=== PATIENT | male | born 1965 | race Caucasian/White ===

== ENCOUNTER 2018-11-14 07:03 | Emergency (ER) | payer OTHER ==
[2018-11-14 07:12] VITALS: BP 166/105
--- NOTE | 2018-11-14 07:18 | ED Physician Documentation ---
PD HPI UPPER EXT INJURY - Stated complaint Stated Complaint: LT MIDDLE FINGER PX - Chief complaint Chief Complaint: Ext Problem - History obtained from History obtained from: Patient - History of Present Illness Location: Left, Hand, Finger (middle finger and knuckle) Type of injury: Blunt / blow (hit a ladder when he was coming down and missed a step) Where injury occurred: Work Timing - onset: How many weeks ago (1) Timing - duration: Days (7) Timing - details: Abrupt onset, Still present Pain level max: 4 Pain level now: 4 Improved by: Meds (ibuprofen) Worsened by: Moving, Palpating Associated symptoms: Swelling. No: Weakness, Numbness, Tingling, Discolored Contributing factors: No: Anticoagulated, Prior ortho surgery Similar symptoms before: Has not had sx before Recently seen: Not recently seen Review of Systems Ten Systems: 10 systems reviewed and negative Constitutional: reports: Reviewed and negative. denies: Fever Skin: reports: Reviewed and negative. denies: Rash, Lesions, Abrasion (s), Laceration (s) Musculoskeletal: reports: Extremity pain, Joint pain Neurologic: denies: Focal weakness, Numbness PD PAST MEDICAL HISTORY - Past Medical History Past Medical History: No GI: GERD - Past Surgical History Past Surgical History: Yes HEENT: Tonsil/Adenoidectomy - Allergies Allergies/Adverse Reactions: Allergies Allergy/AdvReac Type Severity Reaction Status Date / Time terbinafine Allergy Hallucinati Verified 11/14/18 07:09 ons - Social History Does the pt smoke?: No Smoking Status: Former smoker Does the pt drink ETOH?: Yes ETOH Use: Beer Does the pt have substance abuse?: No - Immunizations Immunizations are current?: Yes PD ED PE NORMAL - Vitals Vital signs reviewed: Yes - General General: Alert and oriented X 3 - HEENT HEENT: Atraumatic - Neck Neck: Supple, no meningeal sign - Cardiac Cardiac: RRR - Respiratory Respiratory: No respiratory distress - Abdomen Abdomen: Non distended - Male Male : Deferred - Rectal Rectal: Deferred - Derm Derm: Normal color, Warm and dry, No rash - Extremities Extremities: Other (left third knuckle mild tenderness to palpation, mild swelling, mild reduced ROM of third finger with extension. no numbness or weakness. ) - Neuro Neuro: Alert and oriented X 3 Eye Opening: Spontaneous Motor: Obeys Commands Verbal: Oriented GCS Score: 15 - Psych Psych: Normal mood, Normal affect Results - Vitals Vitals: Vital Signs - 24 hr 11/14/18 07:06 Temperature 36.2 C L Heart Rate 62 Respiratory 15 Rate Blood Pressure 166/105 H O2 Saturation 98 Oxygen O2 Source Room air - Rads (name of study) hand Radiology: Final report received (possible fracture of distal third phalanx at base.) Procedures - Splint (location) Upper extremity left Splint applied by: Tech Type of splint: Other (short finger splint to L third distal phalanx) Other: Patient tolerated well PD MEDICAL DECISION MAKING - ED course Complexity details: considered differential ED course: 53 y/o M with L third finger/knuckle pain for 1 week since hitting it on a ladder. Reduced ROM with extension of third digit. No weakness, numbness. DDx includes extensor tendon injury, fracture, sprain, mallet finger Xray pending Xray shows possible distal L finger fracture and pt has mallet finger. Placed in distal finger splint in extension.Discussed with Dr Cortez who will see pt in clinic. Departure - Departure Disposition: 01 Home, Self Care Clinical Impression: Mallet deformity of left middle finger, Fracture of distal phalanx of finger of left hand Condition: Stable Instructions: ED Fx Finger Closed Follow-Up: Sara Cortez MD [Provider Admit Priv/Credential] - Within 1 week Comments: Take ibuprofen or tylenol for pain. Limit use of Left hand for 1 week until follow up with orthopedics. Maintain distal Left finger in extension splint
[2018-11-14] MEDS ORDERED: IBUPROFEN 600 MG TABLET PO STA (07:24)
--- NOTE | 2018-11-14 07:51 | XRAY Report ---
Reason: decreased ROM, hand trauma to 3rd finger/knuckle Procedure Date: 11/14/2018 Accession Number: [id number] / [id number] Procedure: XR - Hand 3 View LT CPT Code: FULL RESULT: EXAM: LEFT HAND RADIOGRAPHY EXAM DATE: 11/14/2018 07:37 AM. CLINICAL HISTORY: Decreased ROM, hand trauma to 3rd finger/knuckle. COMPARISON: None. TECHNIQUE: 3 views. FINDINGS: Bones: Possible fracture base of third digit distal phalanx palmar surface. There are severe degenerative changes at this location with osteophyte, joint space narrowing, subchondral sclerosis,. Degenerative changes at other DIP joints with osteophyte, joint space narrowing, erosions. Soft Tissues: Soft tissue swelling. IMPRESSION: 1. Possible fracture palmar surface of the third digit distal phalanx base 2. Erosive osteoarthritis RADIA
== END 2018-11-14 09:09 | disposition home or self-care (01) ==
LOC: ED 07:03
DX: S62.633A Displaced fracture of distal phalanx of left middle finger, initial encounter for closed fracture (principal); M20.012 Mallet finger of left finger(s); W22.8XXA Striking against or struck by other objects, initial encounter; Y93.89 Activity, other specified; Y99.0 Civilian activity done for income or pay; M19.042 Primary osteoarthritis, left hand; Z87.891 Personal history of nicotine dependence
CPT/HCPCS: 29130; 73130; 99283; A9270

== ENCOUNTER 2018-12-29 16:34 | Outpatient (CLI) | payer OTHER ==
--- NOTE | 2018-12-30 13:03 | Ultrasound Report ---
Reason: PAINFUL LUMP RIGHT GREAT TOE,MTP PROBABLE LIPOMA Procedure Date: 12/29/2018 Accession Number: [id number] / [id number] Procedure: US - Ext Limited Non Vascular CPT Code: FULL RESULT: EXAM: RIGHT FIRST UPPER EXTREMITY ULTRASOUND - LIMITED EXAM DATE: 12/29/2018 05:52 PM. CLINICAL HISTORY: Painful lump right great toe, MTP. Probable lipoma. COMPARISON: EXT LIMITED NON VASCULAR 12/29/2018 5:19 PM. TECHNIQUE: Real-time scanning was performed with static images obtained. FINDINGS: Dorsal to the right great toe is a heterogeneous fluid collection with echogenic solid material, overall dimension 1.9 x 0.8 x 0.7 cm. The finding is immediately dorsal to the articular space which contains hyperechoic synovial tissue. The definite relationship to the joint space itself is not established. IMPRESSION: The finding does not represent a lipoma. Given clinical description and location, recommend radiography of the foot to evaluate for osseous destruction and soft tissue calcifications; the differential diagnosis on ultrasound is wide and includes inflammatory entities such as gout as well as infectious processes. Malignancy would be difficult to exclude by ultrasound but is far down the differential diagnosis. RADIA
== END 2018-12-29 16:35 | disposition home or self-care (01) ==
LOC: DI 16:34
PROVIDERS: ATTEND Nurse Practitioner Family
DX: M79.674 Pain in right toe(s) (principal); R22.41 Localized swelling, mass and lump, right lower limb; R93.6 Abnormal findings on diagnostic imaging of limbs
CPT/HCPCS: 76882

== ENCOUNTER 2019-01-02 15:02 | Outpatient (CLI) | payer OTHER ==
[2019-01-02] MEDS ORDERED: GADOBUTROL 10 MMOL/10 ML VIAL ONE (15:22)
[2019-01-02] MEDS ORDERED: GADOBUTROL 10 MMOL/10 ML VIAL IVP ONE (16:21)
--- NOTE | 2019-01-04 | CT Report ---
Reason: CERVICAL PAIN IMPACTING ROM, METAL IN EYES? Procedure Date: 01/02/2019 Accession Number: [id number] / [id number] Procedure: CT - ORBITS WO CPT Code: FULL RESULT: EXAM: CT ORBITS WITHOUT CONTRAST EXAM DATE: 01/02/2019 03:17 PM. CLINICAL HISTORY: Metal in eyes? COMPARISONS: None. TECHNIQUE: Thin-section axial images were acquired of the orbits without contrast. Post-processing: Coronal and sagittal reformats. Other: None. In accordance with CT protocol optimization, one or more of the following dose reduction techniques were utilized for this exam: automated exposure control, adjustment of mA and/or KV based on patient size, or use of iterative reconstructive technique. FINDINGS: Orbits: The globes are symmetric in size. There is no evidence of lens dislocation, intraocular hemorrhage, or an intraocular mass lesion. The bilateral external ocular muscles, optic nerves, and superior ophthalmic veins are symmetric and normal in appearance. No radiopaque foreign body is seen in either orbit. Soft Tissue: The infratemporal fossa and parapharyngeal spaces are unremarkable. Bones: No fracture or bone lesion. Temporomandibular Joints: The temporomandibular joints are symmetric and normally located. Sinuses: A small mucocele is noted in the left ethmoid sinus. The partially visualized mastoid sinuses are not opacified. Other: No acute abnormality is seen in the partially visualized brain parenchyma. IMPRESSION: 1. Normal and symmetric bilateral orbits without radiopaque foreign body. 2. Small mucocele in the left ethmoid sinus. RADIA
--- NOTE | 2019-01-04 00:01 | MRI Report ---
Reason: CERVICAL PAIN IMPACTING ROM Procedure Date: 01/02/2019 Accession Number: [id number] / [id number] Procedure: MRI - Cervical Spine W/WO CPT Code: FULL RESULT: EXAM: MRI CERVICAL SPINE WITHOUT AND WITH CONTRAST EXAM DATE: 01/02/2019 04:53 PM. CLINICAL HISTORY: Cervical pain impacting range of motion. COMPARISON: None. TECHNIQUE: Multiplanar, multisequence T1-weighted and fluid-sensitive sequences of the cervical spine before and after administration of intravenous contrast. Other: None. IV contrast: 10 mL of Gadavist. FINDINGS: Neurologic Structures: The visualized posterior fossa structures are unremarkable. No signal abnormality in the visualized spinal cord. Alignment: Retrolisthesis at C4-C5 measures 1 mm. Bone Marrow: Mild type I Modic endplate changes are present at C4-C5, C5-C6, and C6-C7. Superimposed small chronic Schmorl's nodes are noted at these levels. Interspace Levels/Facets: C1-C2: There is no craniocervical stenosis. C2-C3: Mild right foraminal narrowing is present due to uncovertebral hypertrophy and facet arthropathy. The spinal canal and left foramen are patent. C3-C4: A posterior disk osteophyte complex results in mild spinal canal stenosis without mass-effect on the spinal cord. There is severe bilateral foraminal narrowing due to uncovertebral hypertrophy and facet arthropathy. C4-C5: A posterior disk osteophyte complex results in mild spinal canal stenosis without mass-effect on the spinal cord. Moderate left foraminal narrowing is present due to uncovertebral hypertrophy and facet arthropathy. The right foramen is patent. C5-C6: A posterior disk osteophyte complex results in mild spinal canal stenosis. There is moderate right and mild left foraminal narrowing due to bilateral uncovertebral hypertrophy and right-sided facet arthropathy. C6-C7: A posterior disk osteophyte complex results in mild spinal canal stenosis without mass-effect on the spinal cord. There is moderate bilateral foraminal narrowing due to uncovertebral hypertrophy. C7-T1: Unremarkable. Spinal Canal: No enhancing lesions within the spinal canal. No epidural abscess. Musculature: Normal. No edema, enhancement, or fatty atrophy. Other: The paravertebral and prevertebral soft tissues are normal. IMPRESSION: 1. Normal conus medullaris and cauda equina. 2. No abnormal enhancement to suggest cervical spinal infection or tumor. 3. Mild multilevel degenerative changes are present without high-grade spinal canal stenosis or spinal cord impingement. 4. Varying degrees of bilateral foraminal narrowing are present, most severe bilaterally at C3-C4. RADIA
== END 2019-01-02 15:03 | disposition home or self-care (01) ==
LOC: DI 15:02
PROVIDERS: ATTEND Nurse Practitioner Family
DX: J34.1 Cyst and mucocele of nose and nasal sinus (principal); M47.812 Spondylosis without myelopathy or radiculopathy, cervical region; M48.02 Spinal stenosis, cervical region
CPT/HCPCS: 70480; 72156; A9585

== ENCOUNTER 2020-05-25 15:03 | Emergency (ER) | payer OTHER ==
[2020-05-25 15:37] LABS: BASOPHILS % (AUTO) 0.5 %; EOSINOPHILS # (AUTO) 0.1 10^3/uL (0.0-0.7); EOSINOPHILS % (AUTO) 1.6 %; HGB - HEMOGLOBIN 16.7 g/dL (14.0-18.0); LYMPHOCYTES # (AUTO) 1.8 10^3/uL (1.5-3.5); LYMPHOCYTES % (AUTO) 24.5 %; MEAN CORPUSCULAR HEMOGLOBIN 33.4 pg (27.0-31.0); MEAN CORPUSCULAR HGB CONC 35.5 g/dL (32.0-36.0); MEAN PLATELET VOLUME 8.7 fL (7.4-11.4); MONOCYTES # (AUTO) 0.6 10^3/uL (0.0-1.0); MONOCYTES % (AUTO) 7.8 %; NEUTROPHILS # (AUTO) 4.8 10^3/uL (1.5-6.6); NEUTROPHILS % (AUTO) 65.2 %; PLT - PLATELET COUNT 214 10^3/uL (130-450); RED CELL DISTRIBUTION WIDTH 11.8 % (12.0-15.0); WHITE BLOOD COUNT 7.4 x10^3/uL (4.8-10.8)
--- NOTE | 2020-05-25 15:45 | ED Physician Documentation ---
History of Present Illness - Stated complaint Stated Complaint: BLACK STOOL - Chief complaint Chief Complaint: Abd Pain - Additonal information Additional information: 54-year-old male presents emergency department for evaluation of melena for approximately the last 7 to 10 days. He reports frankly black and tarry stools. He also endorses some left-sided abdominal pain as well as epigastric pain no fevers, vomiting. No dysuria urgency or frequency. He does report a history of colonoscopy about 6 months ago in which they found polyps. He was encouraged to have a repeat colonoscopy within the year. He does have a history of GERD for which he takes omeprazole. He is not on blood thinners, rarely uses naproxen for joint pain. He denies feeling lightheaded, short of breath or having any chest pain. Review of Systems Constitutional: denies: Fever, Chills Eyes: reports: Reviewed and negative Ears: reports: Reviewed and negative Nose: reports: Reviewed and negative Throat: reports: Reviewed and negative Cardiac: reports: Reviewed and negative Respiratory: reports: Reviewed and negative GI: reports: Bloody / black stool. denies: Abdominal Pain, Abdominal Swelling, Nausea, Vomiting : denies: Dysuria, Frequency, Hesitancy Skin: denies: Rash Musculoskeletal: reports: Reviewed and negative Neurologic: reports: Reviewed and negative PD PAST MEDICAL HISTORY - Past Medical History GI: GERD - Past Surgical History Past Surgical History: Yes HEENT: Tonsil/Adenoidectomy - Present Medications Home Medications: Ambulatory Orders Medication Instructions Recorded Confirmed Atorvastatin [Lipitor] 20 mg ORAL DAILY 05/25/20 05/25/20 Cristian/D3/Mag11/Zinc/Electrician Supervisor/Ray/Bor 1 tab ORAL DAILY 05/25/20 05/25/20 [Caltrate 600+D Plus Tablet] Cholecalciferol [Vitamin D3] 25 mcg PO DAILY 05/25/20 05/25/20 Naproxen [EC-Naprosyn] 500 mg PO BID PRN 05/25/20 05/25/20 Omeprazole Magnesium 20 mg PO DAILY 05/25/20 05/25/20 - Allergies Allergies/Adverse Reactions: Allergies Allergy/AdvReac Type Severity Reaction Status Date / Time terbinafine Allergy Hallucinati Verified 05/25/20 15:19 ons - Social History Does the pt smoke?: No Smoking Status: Former smoker Does the pt drink ETOH?: Yes Does the pt have substance abuse?: No - Immunizations Immunizations are current?: Yes PD ED PE EXPANDED - General General: Alert, No acute distress, Well developed/nourished - HEENT HEENT: Atraumatic, EOMI - Cardiac Cardiac: Regular Rate, Regular Rhythm, Radial strong equal, Pedal strong equal, Cap refill < 2 sec - Respiratory Respiratory: Clear to ausultation anival. No: Distress, Labored - Abdomen Abdomen: Normal Bowel sounds, Tender to palpation. No: Rebound, Guarding (Mild epigastric and left upper quadrant abdominal pain without guarding or rebound.) - Rectal Rectal: Other (Digital rectal exam reveals small amount of dark brown but not black stool) Results - Vitals Vitals: Vital Signs - 24 hr 05/25/20 05/25/20 15:15 15:38 Temperature 36.4 C L 37 C Heart Rate 76 70 Respiratory 14 14 Rate Blood Pressure 139/99 H 163/102 H O2 Saturation 97 98 Oxygen O2 Source Room air - Labs Labs: Laboratory Tests 05/25/20 05/25/20 15:25 15:25 WBC 7.4 RBC 5.00 Hgb 16.7 Hct 47.0 MCV 94.0 MCH 33.4 H MCHC 35.5 RDW 11.8 L Plt Count 214 MPV 8.7 Neut # (Auto) 4.8 Lymph # (Auto) 1.8 Moca # (Auto) 0.6 Eos # (Auto) 0.1 Baso # (Auto) 0.0 Absolute Nucleated RBC 0.00 Nucleated RBC % 0.0 Sodium 136 Potassium 4.0 Chloride 103 Carbon Dioxide 23 Anion Gap 10.0 BUN 19 Creatinine 0.9 Estimated GFR (MDRD) 88 L Glucose 97 Calcium 9.2 Total Bilirubin 1.1 H AST 59 H ALT 71 H Alkaline Phosphatase 76 Total Protein 7.8 Albumin 4.4 Globulin 3.4 Albumin/Globulin Ratio 1.3 Lipase 47 - Rads (name of study) CXR Radiology: Final report received (Low lung volumes. Scattered subsegmental scarring/atelectasis. No acute consolidation.) abd CT Radiology: Final report received (No acute abnormality of the abdomen or pelvis. No identified cause for melena) PD MEDICAL DECISION MAKING - ED course Complexity details: reviewed results, re-evaluated patient, considered differential, d/w patient ED course: This is a rather well-appearing 54-year-old male that presents to the emergency department with chief complaint of melena for the last 7 to 10 days. He does not have any NSAID overuse or anticoagulation. He does take omeprazole daily for history of acid reflux but he denies any acute abdominal pain. Digital rectal exam today did reveal a small amount of dark brown but not addy melena on gloved finger. His hemoglobin is rather healthy at 16.8 today. The rest of his electrolytes are unremarkable. CT of the abdomen did not reveal any acute findings. This was discussed at length with the patient. He does report that his primary care provider is scheduling him for follow-up with GI. I discussed that this should likely include an EGD to evaluate for sources of upper abdominal bleeding including esophagitis or peptic ulcer disease. Emergent return precautions were discussed and they include hematochezia, racing heart, worsening symptoms high fevers suddenly severe or different abdominal pain Departure - Departure Disposition: 01 Home, Self Care Clinical Impression: Melena Condition: Stable Record reviewed to determine appropriate education?: Yes Comments: Axel the cause of your melena today is not clear. Your hemoglobin was very he althy and normal. The CT of your abdomen did not show any worrisome findings. I would continue to use the omeprazole as you have been prescribed. In the long-term you should be referred for an EGD and/or a colonoscopy. Looking with a camera to identify causes of upper GI bleeding such as gastritis or peptic ulcer disease is important. At any point you develop a racing heart, feel faint or lightheaded, you have addy hematochezia or purple blood from your rectum, or suddenly severe abdominal pain please return immediately to the ER.
[2020-05-25] MEDS ORDERED: SODIUM CHLORIDE 0.9% 1,000 ML IV STA (15:46)
[2020-05-25 15:52] LABS: ALBUMIN 4.4 g/dL (3.2-5.5); ALBUMIN/GLOBULIN RATIO 1.3 (1.0-2.2); BILIRUBIN,TOTAL 1.1 mg/dL (0.2-1.0); CALCIUM 9.2 mg/dL (8.5-10.3); CREATININE 0.9 mg/dL (0.6-1.2); TOTAL PROTEIN 7.8 g/dL (6.7-8.2)
[2020-05-25] MEDS ORDERED: IOVERSOL 320 100 ML VIAL IVP ONE ×2 (15:54→16:09)
--- NOTE | 2020-05-25 16:25 | CT Report ---
PROCEDURE: Abdomen/Pelvis W INDICATIONS: melena; abdominal pain CONTRAST: IV CONTRAST: Optiray 320 ml: 100 PO CONTRAST: *NO PO CONTRAST TECHNIQUE: After the administration of contrast, 5 mm thick sections acquired from the diaphragms to the sym physis. 5 mm thick coronal and sagittal reformats were acquired. For radiation dose reduction, the following was used: automated exposure control, adjustment of mA and/or kV according to patient size . COMPARISON: None. FINDINGS: Image quality: Excellent. ABDOMEN: Lung bases: Lung bases are clear. Heart size is normal. Solid organs: Liver and spleen are normal in size and enhancement. Gallbladder is normal. The liver has a low density consistent with hepatic steatosis. Biliary system is non dilated. Pancreas enhan marlys normally. No adrenal nodules. Kidneys demonstrate normal size and enhancement, without hydronep hrosis. Peritoneum and bowel: Bowel loops demonstrate normal wall thickness and caliber. No free fluid or a ir. The appendix is normal. Nodes and vessels: No retroperitoneal or mesenteric adenopathy by size criteria. Aorta and inferior vena cava are normal in size. The aorta has diffuse atherosclerotic calcifications. Miscellaneous: No ventral hernias. PELVIS: Genitourinary: Bladder wall thickness is normal. Miscellaneous: No inguinal hernias or adenopathy. Bones: No suspicious bony lesions. There is disc disease at L5-S1 with disc space narrowing and end plate degenerative No vertebral body compression fractures. IMPRESSION: 1. No acute abnormality of the abdomen or pelvis. 2. No cause identified to explain melena or abdominal pain. Reviewed by: Iván Low on 05/25/2020 4:23 PM [facility] Approved by: Iván Low on 05/25/2020 4:23 PM PST Station ID: [id number]
[2020-05-25 17:27] VITALS: BP 158/103
== END 2020-05-25 17:31 | disposition home or self-care (01) ==
LOC: ED 15:03
DX: K92.1 Melena (principal); K21.9 Gastro-esophageal reflux disease without esophagitis; Z86.010 Personal history of colon polyps; Z87.891 Personal history of nicotine dependence
CPT/HCPCS: 36415; 74177; 80053; 83690; 85025; 99284; Q9967

== ENCOUNTER 2020-12-05 07:00 | Outpatient (CLI) | payer OTHER | END 2020-12-05 23:59 | disposition home or self-care (01) | LOC: COV 07:00 | PROVIDERS: ATTEND Physician Assistant | DX: Z01.812 Encounter for preprocedural laboratory examination (principal); Z20.822 Contact with and (suspected) exposure to COVID-19 ==

== ENCOUNTER 2021-11-07 10:36 | Day surgery (SDC) | payer OTHER ==
[2021-11-07] MEDS ORDERED: LACTATED RINGERS 1,000 ML IV ONE (10:38)
--- NOTE | 2021-11-07 11:24 | ANESTHESIA ---
Pre-Anesthesia VS, & Labs - Diagnosis history of colon polyps - Procedure colonoscopy Vital Signs: Temp Pulse Resp BP Pulse Ox 36.3 C L 90 16 147/90 H 96 11/07/21 10:44 11/07/21 10:44 11/07/21 10:44 11/07/21 10:44 11/07/21 10:44 Height: 5 ft 10 in Weight (kg): 89 kg Body Mass Index: 28.1 BMI Classification: Overweight Home Medications and Allergies Home Medications: Ambulatory Orders HYDROcod/ACETAM 5/325 [[place]ners 5/325] 1 tab PO PRN PRN 11/06/21 amLODIPine [Norvasc] 5 mg PO DAILY 11/06/21 traZODone [Desyrel] 100 mg PO HS 11/06/21 Atorvastatin [Lipitor] 20 mg ORAL DAILY 05/25/20 Naproxen [EC-Naprosyn] 500 mg PO BID PRN 05/25/20 Omeprazole Magnesium 20 mg PO DAILY 05/25/20 HYDROcod/ACETAM 5/325 [[place] 5/325] 1 tab PO PRN PRN 11/06/21 amLODIPine [Norvasc] 5 mg PO DAILY 11/06/21 traZODone [Desyrel] 100 mg PO HS 11/06/21 Allergies/Adverse Reactions: Allergies Allergy/AdvReac Type Severity Reaction Status Date / Time terbinafine Allergy Hallucinati Verified 11/06/21 13:42 ons Anes History & Medical History - Anesthetic History Anesthesia Complications: reports: No previous complications - Medical History Cardiovascular: reports: Hypertension, High cholesterol Pulmonary: reports: None Gastrointestinal: reports: GERD (controlled with med), Colon polyps Urinary: reports: None Neuro: reports: None Musculoskeletal: reports: Osteoarthritis Endocrine/Autoimmune: reports: None Blood Disorders: reports: None Skin: reports: None Smoking Status: Former smoker (quit 2014) Psychosocial: reports: Alcohol (beer on weekends), Opioid History of Cancer?: No - Surgical History General: reports: Colonoscopy Eyes Ears Nose Throat (EENT): reports: Tonsil/Adenoidectomy Orthopedic: reports: Other Exam General: Alert, Oriented x3, Cooperative, No acute distress Dental: WNL Mouth Openin Fingerbreadth Neck Mobility: Normal Mallampati classification: II Thyromental Distance: 4-6 cm Mental/Cognitive Status: Alert/Oriented X3, Normal for patient Plan Anesthesia Type: Total IV Consent for Procedure(s) Verified and Reviewed: Yes Code Status: Attempt Resuscitation ASA classification: 2-Mild systemic disease Is this case an emergency?: No
[2021-11-07] MEDS ORDERED: PROPOFOL 500 MG/50 ML 500 MG/50 ML VIAL ONE (11:54)
[2021-11-07] MEDS ORDERED: LACTATED RINGERS 700 ML IV ONE (12:12)
[2021-11-07 12:21] VITALS: BP 108/73
--- NOTE | 2021-11-07 13:50 | ANESTHESIA POST OP EVALUATION ---
Anesthesia Post Eval - Post Anesthesia Eval Vitals: Last Vital Signs Temp 36.4 C L 11/07/21 12:20 Pulse 80 11/07/21 12:20 Resp 16 11/07/21 12:20 BP 108/73 11/07/21 12:20 Pulse Ox 97 11/07/21 12:20 CV Function Including HR & BP: Stable Pain Control: Satisfactory Nausea & Vomiting: Negative Mental Status: Baseline Respiratory Status: Airway Patent Hydration Status: Satisfactory Anesthesia Complications: None
== END 2021-11-07 10:37 | disposition home or self-care (01) ==
LOC: SDS 10:36
PROVIDERS: ATTEND Surgery
DX: Z12.11 Encounter for screening for malignant neoplasm of colon (principal); K57.30 Diverticulosis of large intestine without perforation or abscess without bleeding; K64.8 Other hemorrhoids; Z87.891 Personal history of nicotine dependence; Z86.010 Personal history of colon polyps
CPT/HCPCS: 45378; J7120

== ENCOUNTER 2022-02-22 08:00 | Outpatient (CLI) | payer OTHER ==
--- NOTE | 2022-02-22 17:42 | XRAY Report ---
PROCEDURE: Knee 4 View RT INDICATIONS: RIGHT KNEE PAIN TECHNIQUE: 4 views of the right knee(s) were acquired. COMPARISON: None. FINDINGS: Bones: No acute fracture or dislocation. No suspicious bony lesions. There is moderate medial femoro tibial compartment narrowing small intercondylar osteophytes. Soft tissues: No joint effusion. No suspicious soft tissue calcifications. IMPRESSION: Mild degenerative change. Reviewed by: Awilda Cornelius MD on 02/22/2022 5:41 PM PDT Approved by: Awilda Cornelius MD on 02/22/2022 5:41 PM PDT Station ID: [id number]
== END 2022-02-22 23:59 | disposition home or self-care (01) ==
LOC: DI.WOS 08:00
PROVIDERS: ATTEND Orthopaedic Surgery
DX: M17.11 Unilateral primary osteoarthritis, right knee (principal)

== ENCOUNTER 2023-08-19 10:25 | Outpatient (CLI) | payer OTHER | END 2023-08-19 10:26 | disposition home or self-care (01) | LOC: LAB 10:25 | PROVIDERS: ATTEND Urology | DX: R97.20 Elevated prostate specific antigen [PSA] (principal) | CPT/HCPCS: 36415; 84153 ==